=== PATIENT | female | born 1985 | race Caucasian/White ===

== ENCOUNTER 2017-01-26 17:06 | Inpatient (IN) | payer OTHER ==
[2017-01-26] MEDS ORDERED: OXYTOCIN 20 UNIT in LR 1,000 ML IV PRN (17:28)
[2017-01-26] MEDS ORDERED: TERBUTALINE SULFATE 1 MG/ML VIAL IV PRN (17:28)
[2017-01-26] MEDS ORDERED: LR 1,000 ML IV PRN (17:28)
[2017-01-26] MEDS ORDERED: OLIVE OIL 118 ML BTL MISC PRN (17:28)
[2017-01-26] MEDS ORDERED: EPSOM SALT 454 GM TP PRN (17:28)
[2017-01-26] MEDS ORDERED: OLIVE OIL 118 ML BTL ONE (18:01)
[2017-01-26] MEDS ORDERED: LIDOCAINE 1% 300 MG/30 ML SDV ONE (18:01)
[2017-01-26] MEDS ORDERED: TERBUTALINE SULFATE 1 MG/ML VIAL ONE (18:02)
[2017-01-26] MEDS ORDERED: OXYTOCIN 10 UNIT/ML VIAL ONE (18:02)
[2017-01-26] MEDS ORDERED: AMMONIA AROMATIC 1 EACH AMP IH ONE (18:02)
[2017-01-26] MEDS ORDERED: MISOPROSTOL 200 MCG TAB ONE (18:03)
[2017-01-26 18:23] LABS: % IMMATURE GRANULYOCYTES 1.1 % (0.0-1.1); ABSOLUTE IMMATURE GRANULOCYTES 0.09 10^3/uL (0.00-0.10); ADD DIFF? NO; ADD MORPH? NO; ADD SCAN? NO; ATYPICAL LYMPHOCYTE FLAG 10 (0-99); FRAGMENT RBC FLAG 0 (0-99); HEMATOCRIT 37.3 % (38.0-47.0); HEMOGLOBIN 12.9 g/dL (12.6-16.3); LEFT SHIFT FLG 0 (0-99); LIPEMIA HEMOLYSIS FLAG 90 (0-99); MEAN CELL HEMOGLOBIN 30.6 pg (27.9-34.1); MEAN CELL HEMOGLOBIN CONCENTR. 34.6 g/dL (32.4-36.7); MEAN CELL VOLUME 88.6 fL (81.5-99.8); MEAN PLATELET VOLUME 11.2 fL (8.7-11.7); PLATELET CLUMPS FLAG 0 (0-99); PLATELET COUNT 141 10^3/uL (150-400); RED BLOOD CELL COUNT 4.21 10^6/uL (4.18-5.33); RED CELL DISTRIBUTION WIDTH 13.8 % (11.5-15.2)
[2017-01-26 18:38] LABS: ALANINE AMINOTRANSFERASE 25 IU/L (9-52); ASPARTATE AMINOTRANSFERASE 21 IU/L (14-46); BILIRUBIN,TOTAL 0.6 mg/dL (0.1-1.4); BILIRUBIN-CONJUGATED 0.2 mg/dL (0.0-0.5); BILIRUBIN-UNCONJUGATED 0.4 mg/dL (0.0-1.1); CREATININE 0.6 mg/dL (0.6-1.0); GLOMERULAR FILTRATION RATE > 60; LACTATE DEHYDROGENASE 383 IU/L (313-618)
--- NOTE | 2017-01-26 19:05 | GHP ---
[f rep st] PREOP HISTORY AND PHYSICAL DATE OF ADMISSION: 01/26/2017 HISTORY OF PRESENT ILLNESS: Patient admitted in active labor. The patient is a 32-year-old, 2, para 1, with an estimated due date of 01/22/2017, who is 40+ weeks gestation. The patient had sp ontaneous onset of contractions earlier today with increasing intensity and had spontaneous rupture o f membranes while at [facility] for an appointment at approximately 4:45 this afternoon. I t was clear fluid. The patient actually reports contractions started yesterday and came and went in waves of contractions. She did not rest very well last night. The patient has not had any bleeding and has had good movement. The patient was seen at labor and delivery and was 5-6 cm dilated, 80% effaced, -1 station. She is admitted for labor. CARE: care has been with [facility] since 8 weeks gestation. The [facility] ent has a significant history of epilepsy and has been on Lamictal. The patient has been in regular contact with her neurologist, Dr. Caraballo, in [place] and has had lab checks and has gradually increased her Lamictal dosing throughout the . She has currently been on 250 mg twice daily. The [facility] ient has had a relatively uncomplicated course. LABS: Maternal blood type O positive with negative antibody screen. RPR nonreactive. Rube lla immune. Hepatitis B surface antigen negative. HIV negative. 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 Urine test negative. Pap smear normal. Gonorrhea and chlamydia negative. One hour Glucola normal. GBS culture was neg ative. Hematocrit was 34% and the patient has been on iron and it increased to 36%. PAST MEDICAL HISTORY: Epilepsy diagnosed at age 23 and had 1 seizure in her 1st . The [facility] ent has a history of migraines. PAST SURGICAL HISTORY: A vaginal cyst excised in 2011. Odontectomy in high school. HISTORY: In January 2015, a male delivered vaginally at 7 pounds 11 ounces at term after 10 hour labor. The patient had an epidural. ALLERGIES: The patient is allergic to Monistat, which gave her a contact burn. CURRENT MEDICATIONS: vitamins, Lamictal 250 mg twice daily. SOCIAL HISTORY: The patient is , lives with her , Kamar, and their son, Weston. The pat mayo is a nonsmoker. No alcohol or drug use. REVIEW OF SYSTEMS: A 10-point review of systems performed with the pertinent positives and negatives noted above. PHYSICAL EXAMINATION: GENERAL: Upon admission, the patient is a well-developed, well-nourished, [facility], white female in moderate distress with contractions. The patient is well controlled in michael thing through them. VITAL SIGNS: The 1st blood pressure was 135/87 with a repeat blood pressure of 142/83. The patient is afebrile. For full documentation of the vital signs, please see the nursing notes. heart tone monitoring is category 1 with a baseline in the 130s with good variability a nd accelerations. No decelerations noted. Contractions are approximately every 4-5 minutes. Grossl y ruptured fluid clear. Vaginal exam is not repeated as the patient was recently checked at [facility], [place] and was 5-6 cm, 80% effaced, -1 station. EXTREMITIES: Nontender. ASSESSMENT: Intrauterine at 40+ weeks gestation, spontaneous early active labor and sponta neous rupture of membranes. GBS negative. Epilepsy, on Lamictal. PLAN: We will get the patient pain medicine if she requests. We will do [facility] labs for the borderline blood pressures on admission. /[id number]/MODL
[2017-01-26] MEDS ORDERED: fentaNYL 100 MCG/2 ML INJ ONE (20:04)
[2017-01-26] MEDS ORDERED: fentaNYL 2MCG/ML/BUP 0.1% RTU 100 ML BAG EP ONE (20:04)
[2017-01-26] MEDS ORDERED: PHENYLEPHRINE HCL 100 MCG/ML SYR ONE (20:05)
[2017-01-26] MEDS ORDERED: BUPIVACAINE 0.25% 30 ML SDV ONE (20:05)
[2017-01-26] MEDS ORDERED: ONDANSETRON 4 MG/2 ML VIAL IVP PRN (20:38)
[2017-01-26] MEDS ORDERED: PHENYLEPHRINE HCL 100 MCG/ML SYR IVP PRN (20:38)
--- NOTE | 2017-01-26 20:38 | PREANESOB ---
Obstetric Pre-Anesthesia Info - General Info Proposed Procedure: ori : 2 Para: 1 [place]IR[place]IE: 01/22/17 Gestational Age: 40 week(s) and 4 day(s) - Info Status: Full Term FHR Pattern: Reassuring - Labor Status PIH: No Magnesium Sulfate in Use: No Indications for Labor Analgesia: Pain Control Labor Epidural: Yes Anesthesia Allergies/Adverse Reactions: Allergy/AdvReac Type Severity Reaction Status Date / Time aspartame Allergy Intermediate migraine Verified 02/07/15 08:54 tioconazole Allergy Verified 11/14/14 19:43 [From Monistat 1 (tioconazole)] Home Medications: Medication Instructions Recorded Ibuprofen [Motrin (*)] 600 mg PO Q6 PRN #30 tab 02/09/15 lamoTRIgine [LamICTAL 100 MG (*)] 300 mg PO BID #60 tab 02/09/15 Visit Medications: Generic Name Dose Route Start Last Admin Trade Name Freq PRN Reason Stop Dose Admin Lactated Ringer's 1,000 mls @ 0 mls/hr 01/26/17 17:28 Lr IV 01/27/17 17:27 PRN PRN SEE PROTOCOL CONDITIONS Protocol Per Protocol Oxytocin 20 unit/ Lactated 1,002 mls @ 150 mls/hr 01/26/17 17:28 Ringer's IV PRN PRN Post- bleeding Ibuprofen 600 mg 01/26/17 17:28 Motrin PO 07/25/17 17:27 Q6HRS PRN post , inflammation Lamotrigine 250 mg 01/26/17 21:00 Lamictal PO 07/25/17 20:59 BID JERSON Magnesium Sulfate 454 gm 01/26/17 17:28 Epsom Salt TP 07/25/17 17:27 Q1H PRN perineal discomfort [place] Oil 118 ml 01/26/17 17:28 Sweet Oil MISC 07/25/17 17:27 ONCE PRN perineal massage Terbutaline Sulfate 0.25 mg 01/26/17 17:28 Brethine IV 07/25/17 17:27 ONCE PRN Tachysystole Discontinued Medications Generic Name Dose Route Start Last Admin Trade Name Freq PRN Reason Stop Dose Admin Ammonia (Aromatic Spirit) Confirm 01/26/17 18:02 Ammonia Aromatic Administered 01/26/17 18:03 Dose 1 each IH .STK-MED ONE Bupivacaine HCl Confirm 01/26/17 20:05 Sensorcaine 0.25% Sdv Administered 01/26/17 20:06 Dose 30 ml .ROUTE .STK-MED ONE Ephedrine Sulfate Confirm 01/26/17 18:02 Ephedrine Sulfate Administered 01/26/17 18:03 Dose 50 mg .ROUTE .STK-MED ONE Fentanyl Confirm 01/26/17 20:04 Sublimaze Administered 01/26/17 20:05 Dose 100 mcg .ROUTE .STK-MED ONE Fentanyl/Bupivacaine HCl Confirm 01/26/17 20:04 Fentanyl/Bupivacaine/Ns 2 Mcg/Ml 0.1% (Premix Administered 01/26/17 20:05 Dose 100 ml EP .STK-MED ONE Lidocaine HCl Confirm 01/26/17 18:01 Lidocaine Hcl 1% Administered 01/26/17 18:02 Dose 300 mg .ROUTE .STK-MED ONE Misoprostol Confirm 01/26/17 18:03 Cytotec Administered 01/26/17 18:04 Dose 800 mcg .ROUTE .STK-MED ONE [place] Oil Confirm 01/26/17 18:01 Sweet Oil Administered 01/26/17 18:02 Dose 118 ml .ROUTE .STK-MED ONE Oxytocin Confirm 01/26/17 18:02 Pitocin Administered 01/26/17 18:03 Dose 40 unit .ROUTE .STK-MED ONE Phenylephrine HCl Confirm 01/26/17 20:05 Neosynephrine Administered 01/26/17 20:06 Dose 1,000 mcg .ROUTE .STK-MED ONE Terbutaline Sulfate Confirm 01/26/17 18:02 Brethine Administered 01/26/17 18:03 Dose 1 mg .ROUTE .STK-MED ONE - Anesthesia History Response to Local Anesthetics: Normal Anesthesia & Operative History: No Prior Problems Family Anesthesia History: Not Applicable - Social History Substance Use/Abuse: Denies - Vital Signs Height/Weight (Nursing): Height 172.72 cm Weight 102.965 kg - Focused Exam Mallampati Score: Class 2 Mouth exam: normal dental/mouth exam Pulmonary: no respiratory distress Cardiovascular: regular rate and rhythym Labs: 01/26/17 18:10 01/26/17 18:10 Patient ABO/Rh O POSITIVE 01/26/17 18:10 Uric Acid 5.0 mg/dL (2.5-6.8) 01/26/17 18:10 Total Bilirubin 0.6 mg/dL (0.1-1.4) 01/26/17 18:10 Conjugated Bilirubin 0.2 mg/dL (0.0-0.5) 01/26/17 18:10 Unconjugated Bilirubin 0.4 mg/dL (0.0-1.1) 01/26/17 18:10 AST 21 IU/L (14-46) 01/26/17 18:10 ALT 25 IU/L (9-52) 01/26/17 18:10 Lactate Dehydrogenase 383 IU/L (313-618) 01/26/17 18:10 - Plan Consent Signed and on Chart: Yes Patient/Guardian Understands and Agrees to Plan: Yes Urgent/Emergent Case: Anes eval completed preop but documented later for safe timely pt care
[2017-01-26] MEDS ORDERED: LR 500 ML IV SCH (21:00)
[2017-01-26] MEDS ORDERED: fentaNYL 2MCG/ML/BUP 0.1% RTU 100 ML EP SCH (21:00)
[2017-01-27] MEDS ORDERED: ACETAMINOPHEN 325 MG TAB PO PRN (00:04)
[2017-01-27] MEDS ORDERED: HYDROCODONE/APAP 5/325 TAB PO PRN (00:04)
[2017-01-27] MEDS ORDERED: ceFAZolin 1 GM VIAL IVP ONE (00:05)
--- NOTE | 2017-01-27 00:09 | OBDEL ---
Info Type: Vaginal Presentation at Delivery: Vertex L&D Analgesia/Anesthesia Type: Epidural GBS+: No Intrapartum Medications: Generic Name Dose Route Start Last Admin Trade Name Freq PRN Reason Stop Dose Admin Lactated Ringer's 500 mls @ 0 mls/hr 01/26/17 21:00 01/26/17 21:15 Lr IV 07/25/17 20:59 500 mls CONT JERSON Administration As Directed Phenylephrine HCl 100 mcg 01/26/17 20:38 01/26/17 21:25 Neosynephrine IVP 07/25/17 20:37 100 mcg .Q2M PRN Administration Hypotension - Care Provider Environmental Lawyer/CLINICAL REIMBURSEMENT SPECIALIST: Lionel Martinez Indications for Delivery: Spontaneous Labor Vaginal Delivery - Delivery Provider Delivery Physician/CNM: Farzana Calixto - Labor and Delivery Onset of Contractions Date: 01/26/17 Onset of Contractions Time: 17:00 Onset of Contractions Type: Spontaneous Rupture of Membranes Date: 01/26/17 Rupture of Membranes Time: 16:45 Rupture of Membranes Type: Spontaneous Amniotic Fluid Color: Clear Dilation Complete Date: 01/26/17 Dilation Complete Time: 23:23 Placenta Delivery Date: 01/26/17 Placenta Delivery Time: 23:45 Total Hours of Labor: 6 Laceration: Other (Specify) (none) Vaginal Sponge Count Correct: Yes Vaginal Needle Count Correct: Yes Vaginal Sweep Performed: Yes EBL: 400 Delivery Events: Retained Placenta (retained membranes, uterus swept with ray- tech and remnants of membranes swept out. multiple passes made to sweep out.) [place] [employer] Delivery Date: 01/26/17 Delivery Time: 23:39 VIR[place]IE: 01/22/17 Gestational Age: 40 week(s) and 5 day(s) Sex of : Male (Jasvir) Score (1 Min): 8 Score (5 Min): 9 ICD10 Worksheet Patient Problems: Problems Problem Status Onset Retained amniotic membrane Acute (spontaneous vaginal delivery) Acute
[2017-01-27] MEDS: IBUPROFEN 600 MG TAB PO PRN ×4 (03:14→22:04)
[2017-01-27] MEDS: lamoTRIgine 100 MG TAB PO SCH ×3 (03:19→22:04)
[2017-01-27] MEDS: DOCUSATE SODIUM 100 MG CAP PO PRN ×2 (09:32→22:04)
--- NOTE | 2017-01-27 13:19 | OBPP ---
Progress Note Assessment/Plan: Assessment: 32yo s/p PPD#1 Plan: routine PP Care cont plan to d/c home tomorrow 01/27/17 13:15 Subjective/ Course: 01/27/17 13:19 pt doing well, she has no complaints. She reports minimal pain and bleeding. She is happy, denies any depression. She is ambulating and voiding without difficulty. Objective: 01/26/17 18:10 01/26/17 18:10 Patient ABO/Rh O POSITIVE 01/26/17 18:10 Uric Acid 5.0 mg/dL (2.5-6.8) 01/26/17 18:10 Total Bilirubin 0.6 mg/dL (0.1-1.4) 01/26/17 18:10 Conjugated Bilirubin 0.2 mg/dL (0.0-0.5) 01/26/17 18:10 Unconjugated Bilirubin 0.4 mg/dL (0.0-1.1) 01/26/17 18:10 AST 21 IU/L (14-46) 01/26/17 18:10 ALT 25 IU/L (9-52) 01/26/17 18:10 Lactate Dehydrogenase 383 IU/L (313-618) 01/26/17 18:10 Temp Pulse Resp BP Pulse Ox 36.4 C 87 14 123/72 H 97 01/27/17 09:40 01/27/17 09:40 01/27/17 09:40 01/27/17 09:40 01/27/17 09:40 Uterine Position/Fundal Height: Umbilicus -1, Midline Uterine Tone: Firm Physical Exam - Physical Exam EENT: PERRL/EOMI Neck: supple Respiratory: lungs clear, normal breath sounds Cardiac/Chest: regular rate, rhythm Abdomen: non-tender, soft Extremities: normal inspection Skin: warm/dry Neuro/Psych: alert, normal mood/affect, oriented x 3
[2017-01-28] MEDS: IBUPROFEN 600 MG TAB PO PRN ×2 (05:38→12:00)
[2017-01-28 08:14] VITALS: BP 124/75; PULSE 89; RESP 18; TEMP 98.3; O2SAT 98
--- NOTE | 2017-01-28 08:32 | OBPP ---
Progress Note Assessment/Plan: Assessment: Post day 2 Stable afebrile Tolerating diet, ambulating, breast feeding and flatus min lochia Ready for discharge home Plan: Discharge home Ibuprofen stool softener Follow up two weeks Return precautions given 01/28/17 08:33 Subjective/ Course: 01/27/17 13:19 pt doing well, she has no complaints. She reports minimal pain and bleeding. She is happy, denies any depression. She is ambulating and voiding without difficulty. Objective: 01/28/17 05:30 01/26/17 18:10 Patient ABO/Rh O POSITIVE 01/26/17 18:10 Uric Acid 5.0 mg/dL (2.5-6.8) 01/26/17 18:10 Total Bilirubin 0.6 mg/dL (0.1-1.4) 01/26/17 18:10 Conjugated Bilirubin 0.2 mg/dL (0.0-0.5) 01/26/17 18:10 Unconjugated Bilirubin 0.4 mg/dL (0.0-1.1) 01/26/17 18:10 AST 21 IU/L (14-46) 01/26/17 18:10 ALT 25 IU/L (9-52) 01/26/17 18:10 Lactate Dehydrogenase 383 IU/L (313-618) 01/26/17 18:10 Temp Pulse Resp BP Pulse Ox 36.8 C 89 18 124/75 H 98 01/28/17 07:30 01/28/17 07:30 01/28/17 07:30 01/28/17 07:30 01/28/17 07:30 Uterine Position/Fundal Height: Umbilicus -2 Uterine Tone: Firm Physical Exam - Physical Exam Respiratory: chest non-tender Cardiac/Chest: normal peripheral pulses Abdomen: normal bowel sounds, non-tender, soft Extremities: normal range of motion, non-tender Skin: normal color, warm/dry Neuro/Psych: no motor/sensory deficits, alert, normal mood/affect, oriented x 3
--- NOTE | 2017-01-28 08:37 | OBGCSDC ---
General Delivery Information - General Info : 2 Para: 2 Abortions: 0 Type: Vaginal L&D Analgesia/Anesthesia Type: Epidural Admission Date: 01/26/17 Labs: Patient ABO/Rh O POSITIVE 01/26/17 18:10 Hct 34.0 % (38.0-47.0) L 01/28/17 05:30 - Hospital Course : 01/27/17 13:19 pt doing well, she has no complaints. She reports minimal pain and bleeding. She is happy, denies any depression. She is ambulating and voiding without difficulty. Vaginal - Delivery Provider Delivery Physician/CNM: Farzana Calixto - Diagnosis Labor: Spontaneous Rupture of Membranes Type: Spontaneous Amniotic Fluid Color: Clear Laceration: Other (Specify) (none) Delivery Events: Retained Placenta (retained membranes, uterus swept with ray- tech and remnants of membranes swept out. multiple passes made to sweep out.) - Delivery EBL: [address] [place] [address] [employer] Delivery Date: 01/26/17 Delivery Time: 23:39 VIR[place]IE: 01/22/17 Gestational Age: 40 week(s) and 6 day(s) Sex of Infant: Male Weight (gm): 4034 kg Score (1 Min): 8 Score (5 Min): 9 Discharge Information - Discharge Information Prescriptions: Ibuprofen [Motrin (*)] 600 mg PO Q6HRS PRN #30 tab PRN Reason: post , inflammation Docusate Sodium [Colace 100 MG (*)] 100 mg PO BID PRN #30 cap PRN Reason: Constipation Condition: Good Instruction/Follow Up: Two Weeks
[2017-01-28] MEDS: DOCUSATE SODIUM 100 MG CAP PO PRN (10:22)
[2017-01-28] MEDS: lamoTRIgine 100 MG TAB PO SCH (10:22)
--- NOTE | 2017-02-02 07:06 | POSTANESTH ---
Post Anesthetic Evaluation Cardiovascular Status: Normal, Stable Respiratory Status: Normal, Stable Level of Consciousness/Mental Status: Can Participate in Eval Pain Control: Adequate, Prn Tx Ordered Nausea/Vomiting Control: Adequate, Prn Tx Ordered Complications Possibly Related to Anesthesia: None Noted
== END 2017-01-28 16:40 | disposition home or self-care (01) | DRG 774 ==
LOC: FLD 17:06 → FOB 01-27 02:00
PROVIDERS: ADMIT Obstetrics & Gynecology; ATTEND Obstetrics & Gynecology
PROC: 10E0XZZ Delivery of Products of Conception, External Approach (ICD-10-PCS; principal; 2017-01-26)
DX: O99.354 Diseases of the nervous system complicating childbirth (principal); O73.0 Retained placenta without hemorrhage; Z37.0 Single live birth; G40.909 Epilepsy, unspecified, not intractable, without status epilepticus; Z3A.40 40 weeks gestation of pregnancy
CPT/HCPCS: 80175-90; J0690; J2370; J3010; J3105

== ENCOUNTER → 2017-02-01 | Outpatient (CLI) | payer OTHER | LOC: FLACT 09:49 | PROVIDERS: ATTEND Obstetrics & Gynecology | DX: Z39.1 Encounter for care and examination of lactating mother (principal) | CPT/HCPCS: G0463 ==